=== PATIENT | female | born 1935 | race Caucasian/White ===

== ENCOUNTER 2021-11-06 00:22 | Inpatient (IN) | payer OTHER ==
[~2021-11-06] VITALS: Ht 149.9 cm; Wt 62.2 kg
[~2021-11-06 00:22] MED LIST: AMLO-489 PO; ASPI-543 PO; CHOL0.05 PO; CYA100I PO; CYCL-839 PO; DONE1TAB88 PO; ESOM40CA39 PO; FERR-20 PO; LEVO25TA6 PO; LOPE2CAP PO; LOSA-69 PO; LOVA40TA72 PO; METF-370 PO
[2021-11-06] MEDS ORDERED: SODIUM CHLORIDE 0.9% 500 ML IV ONE (01:15)
[2021-11-06] MEDS ORDERED: ONDANSETRON HCL 4 MG/2 ML VIAL IV ONE ×2 (01:15→04:15)
[2021-11-06] MEDS ORDERED: HYDROmorphone HCL 2 MG/ML VL/or syr IV ONE ×2 (01:15→04:15)
[2021-11-06 01:17] LABS: Basophils # (auto) 0.2 10 ^3/uL (0-0.2); Basophils % (auto) 0.9 % (0.0-2.0); Eosinophils # (auto) 0 10 ^3/uL (0-0.8); Eosinophils % (auto) 0.1 % (0.0-7.0); Hematocrit 45.7 % (36.0-46.0); Hemoglobin 14.8 g/dL (12.2-16.2); Lymphocytes # (auto) 4.4 10 ^3/uL (0.4-5.4); Mean Corpuscular Hemoglobin 28.1 pg (28.0-32.0); Mean Corpuscular Hgb Conc. 32.5 g/dL (32.0-36.0); Mean Corpuscular Volume 86.5 fL (80.0-100.0); Monocytes # (auto) 1.6 10 ^3/uL (0-1.3); Monocytes % (auto) 7.3 % (0.0-12.0); Neutrophils # (auto) 15.8 10 ^3/uL (1.6-8.6); Neutrophils % (auto) 71.7 % (37.0-80.0); Nucleated Red Blood Cells % 0.1 %; Red Blood Cells 5.28 10^6/uL (4.0-5.20); Red Cell Distribution Width 15.1 % (11.8-14.3); White Blood Cell 22.1 10^3/uL (4.4-10.8)
[2021-11-06] MEDS ORDERED: IOHEXOL 300 MG/ML 100ML BOTTLE IJ ONE (01:17)
[2021-11-06 01:34] LABS: Albumin 3.8 g/dL (3.4-5.0); Calcium 9.7 mg/dL (8.5-10.1); Potassium 3.1 mmol/L (3.5-5.1)
[2021-11-06 01:37] LABS: Bilirubin, Total 1.2 mg/dL (0.2-1.0); Lactic Acid w/Reflex 4.2 mmol/L (0.4-2.0); Total Protein 7.5 g/dL (6.4-8.2)
[2021-11-06 03:20] LABS: BUN/Creatinine Ratio 14.8
[2021-11-06 03:53] LABS: Urine Bacteria NONE SEEN /hpf (None Seen); Urine Blood Negative /uL (Negative); Urine WBC 1 /hpf (0 - 5)
[2021-11-06 04:08] LABS: Amphetamine Screen, Urine NEGATIVE (NEGATIVE); Barbiturate Scree,Urine NEGATIVE (NEGATIVE); Benzodiazephine Screen, Urine NEGATIVE (NEGATIVE); Cannabinoid Screen, Urine NEGATIVE (NEGATIVE); Cocaine Screen, Urine NEGATIVE (NEGATIVE); Opiate Scree,Urine NEGATIVE (NEGATIVE); Phencyclidine Screen, Urine NEGATIVE (NEGATIVE)
[2021-11-06 04:21] LABS: Alcohol, Urine < 3.0 mg/dL (0-10)
[2021-11-06] MEDS ORDERED: PIPERACILLIN-TAZOB 3.375GM 100 ML IV ONE (05:00)
[2021-11-06] MEDS ORDERED: VANCOMYCIN 1GM/250ML 250 ML IV ONE (05:00)
[2021-11-06] MEDS ORDERED: SODIUM CHLORIDE 0.9% 1,850 ML IV ONE (06:00)
[2021-11-06] MEDS ORDERED: HYDROcodone-ACET 5/325MG TAB PO PRN (07:15)
[2021-11-06] MEDS ORDERED: hydrALAZINE HCL 25 MG TAB PO PRN (07:15)
[2021-11-06] MEDS ORDERED: HYDROmorphone HCL 2 MG/ML VL/or syr IV PRN (07:15)
[2021-11-06] MEDS ORDERED: ONDANSETRON HCL 4 MG/2 ML VIAL IV PRN (07:15)
[2021-11-06] MEDS ORDERED: DOCUSATE SOD 100 MG CAP PO PRN (07:15)
[2021-11-06] MEDS ORDERED: DEXTROSE (50%) 50ML SYRG IV PRN (07:15)
[2021-11-06] MEDS ORDERED: ACETAMINOPHEN 325 MG TAB PO PRN (07:15)
[2021-11-06] MEDS ORDERED: MORPHINE SULFATE INJECTION 2 MG/ML SYRG IV PRN (07:30)
[2021-11-06] MEDS ORDERED: IPRATROPIUM BROM 0.5 MG/2.5ML INH SOL NEB PRN (07:30)
[2021-11-06] MEDS ORDERED: NITROGLYCERIN 0.4 MG SL TAB SL PRN (07:30)
[2021-11-06] MEDS ORDERED: ALBUTEROL SULF 2.5 MG/0.5ML(0.5%) NEB SOLN NEB PRN (07:30)
[2021-11-06 07:56] LABS: Basophils # (auto) 0 10 ^3/uL (0-0.2); Basophils % (auto) 0.3 % (0.0-2.0); Eosinophils # (auto) 0 10 ^3/uL (0-0.8); Hematocrit 44.9 % (36.0-46.0); Hemoglobin 15.2 g/dL (12.2-16.2); Lymphocytes # (auto) 0.6 10 ^3/uL (0.4-5.4); Lymphocytes % (auto) 5.2 % (10.0-50.0); Mean Corpuscular Hemoglobin 28.9 pg (28.0-32.0); Mean Corpuscular Hgb Conc. 33.8 g/dL (32.0-36.0); Mean Corpuscular Volume 85.3 fL (80.0-100.0); Monocytes # (auto) 0.6 10 ^3/uL (0-1.3); Monocytes % (auto) 5.1 % (0.0-12.0); Neutrophils # (auto) 10.1 10 ^3/uL (1.6-8.6); Neutrophils % (auto) 89.4 % (37.0-80.0); Red Blood Cells 5.26 10^6/uL (4.0-5.20); White Blood Cell 11.3 10^3/uL (4.4-10.8)
[2021-11-06] MEDS: ACCU-CHEK COMFORT CURVE STRIP VI SCH ×4 (08:22→20:10)
[2021-11-06] MEDS: InsuLIN REG 1unit/0.01ml Soln (100units/ml) SC SCH ×4 (08:22→20:00)
[2021-11-06 09:38] LABS: Albumin 3.4 g/dL (3.4-5.0); Calcium 8.6 mg/dL (8.5-10.1); Potassium 3.7 mmol/L (3.5-5.1)
[2021-11-06 09:42] LABS: BUN/Creatinine Ratio 18.6; Bilirubin, Total 0.6 mg/dL (0.2-1.0); Total Protein 6.6 g/dL (6.4-8.2)
[2021-11-06] MEDS: FAMOTIDINE (10MG/ML) 2ML VL IV SCH (09:52)
[2021-11-06] MEDS: amLODIPine BESYLATE 5 MG TAB PO SCH (09:52)
[2021-11-06] MEDS: ENOXAPARIN SOD 40 MG/0.4 ML SYRINGE SC SCH (09:53)
[2021-11-06] MEDS ORDERED: SODIUM CHLORIDE 0.9% 1,000 ML IV ONE (11:00)
[2021-11-06] MEDS: SODIUM CHLORIDE 0.9% 1,000 ML IV SCH ×2 (12:00→18:45)
[2021-11-06 13:00] VITALS: BP 127/59
[2021-11-06] MEDS: SODIUM CHLOR 0.9% PF (SALINE LOCK) 10ML VIAL/SYR IV SCH ×2 (14:00→22:20)
[2021-11-06 14:10] VITALS: BP 181/77
[2021-11-06] MEDS: PIPERACILLIN-TAZOB 3.375GM 100 ML IV SCH ×2 (14:30→22:57)
[2021-11-06 16:42] VITALS: BP 123/52
[2021-11-06 22:00] VITALS: BP 130/48
[2021-11-07] MEDS: ACCU-CHEK COMFORT CURVE STRIP VI SCH ×7 (00:01→23:56)
[2021-11-07] MEDS: InsuLIN REG 1unit/0.01ml Soln (100units/ml) SC SCH ×7 (00:05→23:57)
[2021-11-07] MEDS: INSULIN LANTUS (GLARGINE) 1 /0.01ml (100units/ml) SC SCH ×3 (00:06→23:52)
[2021-11-07] MEDS: SODIUM CHLORIDE 0.9% 1,000 ML IV SCH ×2 (02:23→11:15)
[2021-11-07 05:00] VITALS: BP 129/72
[2021-11-07 06:05] LABS: Potassium 3.4 mmol/L (3.5-5.1)
[2021-11-07 06:06] LABS: Basophils # (auto) 0 10 ^3/uL (0-0.2); Basophils % (auto) 0.1 % (0.0-2.0); Eosinophils # (auto) 0 10 ^3/uL (0-0.8); Eosinophils % (auto) 0.1 % (0.0-7.0); Hematocrit 48.3 % (36.0-46.0); Hemoglobin 16.2 g/dL (12.2-16.2); Lymphocytes # (auto) 1.1 10 ^3/uL (0.4-5.4); Lymphocytes % (auto) 8.6 % (10.0-50.0); Mean Corpuscular Hemoglobin 28.5 pg (28.0-32.0); Mean Corpuscular Hgb Conc. 33.6 g/dL (32.0-36.0); Monocytes # (auto) 0.9 10 ^3/uL (0-1.3); Monocytes % (auto) 6.8 % (0.0-12.0); Neutrophils # (auto) 10.8 10 ^3/uL (1.6-8.6); Neutrophils % (auto) 84.4 % (37.0-80.0); Nucleated Red Blood Cells % 0.1 %; Red Blood Cells 5.68 10^6/uL (4.0-5.20); Red Cell Distribution Width 15.6 % (11.8-14.3); White Blood Cell 12.8 10^3/uL (4.4-10.8)
[2021-11-07 06:17] LABS: Albumin 2.7 g/dL (3.4-5.0); BUN/Creatinine Ratio 24.5; Bilirubin, Total 0.8 mg/dL (0.2-1.0); Calcium 6.8 mg/dL (8.5-10.1); Total Protein 6.6 g/dL (6.4-8.2)
[2021-11-07] MEDS: PIPERACILLIN-TAZOB 3.375GM 100 ML IV SCH ×3 (06:21→22:06)
[2021-11-07] MEDS: SODIUM CHLOR 0.9% PF (SALINE LOCK) 10ML VIAL/SYR IV SCH ×3 (06:21→22:01)
[2021-11-07 09:00] VITALS: BP 130/64
[2021-11-07] MEDS: FAMOTIDINE (10MG/ML) 2ML VL IV SCH (09:32)
[2021-11-07] MEDS: ENOXAPARIN SOD 40 MG/0.4 ML SYRINGE SC SCH (09:33)
[2021-11-07] MEDS: amLODIPine BESYLATE 5 MG TAB PO SCH (09:33)
[2021-11-07] MEDS ORDERED: SODIUM CHLORIDE 0.9% 1,000 ML IV ONE (11:00)
[2021-11-07 13:00] VITALS: BP 136/65
[2021-11-07 17:00] VITALS: BP 136/51
[2021-11-07 20:00] VITALS: BP 122/68
[2021-11-07 21:41] VITALS: BP 122/68
[2021-11-08] MEDS: SODIUM CHLORIDE 0.9% 1,000 ML IV SCH (03:55)
[2021-11-08] MEDS: ACCU-CHEK COMFORT CURVE STRIP VI SCH ×3 (04:09→11:31)
[2021-11-08] MEDS: InsuLIN REG 1unit/0.01ml Soln (100units/ml) SC SCH ×3 (04:12→11:31)
[2021-11-08 04:50] VITALS: BP 149/71
[2021-11-08] MEDS: PIPERACILLIN-TAZOB 3.375GM 100 ML IV SCH (06:22)
[2021-11-08] MEDS: SODIUM CHLOR 0.9% PF (SALINE LOCK) 10ML VIAL/SYR IV SCH ×2 (06:22→14:12)
[2021-11-08] MEDS: INSULIN LANTUS (GLARGINE) 1 /0.01ml (100units/ml) SC SCH (06:29)
[2021-11-08 06:57] LABS: Basophils # (auto) 0 10 ^3/uL (0-0.2); Basophils % (auto) 0.1 % (0.0-2.0); Eosinophils # (auto) 0 10 ^3/uL (0-0.8); Hematocrit 42.4 % (36.0-46.0); Hemoglobin 14.7 g/dL (12.2-16.2); Lymphocytes # (auto) 0.8 10 ^3/uL (0.4-5.4); Mean Corpuscular Hemoglobin 29.3 pg (28.0-32.0); Mean Corpuscular Hgb Conc. 34.7 g/dL (32.0-36.0); Mean Corpuscular Volume 84.5 fL (80.0-100.0); Monocytes # (auto) 0.5 10 ^3/uL (0-1.3); Monocytes % (auto) 4.4 % (0.0-12.0); Neutrophils # (auto) 9.6 10 ^3/uL (1.6-8.6); Neutrophils % (auto) 88.5 % (37.0-80.0); Red Blood Cells 5.02 10^6/uL (4.0-5.20); Red Cell Distribution Width 15.5 % (11.8-14.3); White Blood Cell 10.8 10^3/uL (4.4-10.8)
[2021-11-08 07:22] LABS: Albumin 2.1 g/dL (3.4-5.0); Potassium 3.2 mmol/L (3.5-5.1)
[2021-11-08 07:37] LABS: BUN/Creatinine Ratio 25.7; Bilirubin, Direct 0.2 mg/dL (0-0.2); Total Protein 5.9 g/dL (6.4-8.2)
[2021-11-08 07:39] LABS: Calcium 5.3 mg/dL (8.5-10.1)
[2021-11-08 08:00] VITALS: BP 130/64
[2021-11-08 09:00] VITALS: BP 125/63
[2021-11-08] MEDS: FAMOTIDINE (10MG/ML) 2ML VL IV SCH (09:28)
[2021-11-08] MEDS: amLODIPine BESYLATE 5 MG TAB PO SCH (09:29)
[2021-11-08] MEDS: ENOXAPARIN SOD 40 MG/0.4 ML SYRINGE SC SCH (09:29)
[2021-11-08] MEDS ORDERED: POTASSIUM EFFERVESENT TAB 25 MEQ GT ONE (11:00)
[2021-11-08 12:55] VITALS: BP 125/63
[2021-11-08] MEDS ORDERED: LOPERAMIDE HCL 2 MG CAP/TAB PO ONE (14:15)
== END 2021-11-08 16:00 | disposition home health service (06) | DRG 440 ==
LOC: ER 00:22 → EDBD 00:22 → TELE 07:30 → TELE-EAST 19:28
PROVIDERS: ADMIT Nurse Practitioner Family; ATTEND Internal Medicine
DX: K85.10 Biliary acute pancreatitis without necrosis or infection (principal); E03.9 Hypothyroidism, unspecified; E11.65 Type 2 diabetes mellitus with hyperglycemia; E78.5 Hyperlipidemia, unspecified; I10 Essential (primary) hypertension; J44.9 Chronic obstructive pulmonary disease, unspecified; K21.9 Gastro-esophageal reflux disease without esophagitis; K44.9 Diaphragmatic hernia without obstruction or gangrene; R74.01 Elevation of levels of liver transaminase levels; R74.8 Abnormal levels of other serum enzymes; R79.89 Other specified abnormal findings of blood chemistry; K57.30 Diverticulosis of large intestine without perforation or abscess without bleeding; Z20.822 Contact with and (suspected) exposure to COVID-19; Z82.49 Family history of ischemic heart disease and other diseases of the circulatory system; Z83.3 Family history of diabetes mellitus; Z90.49 Acquired absence of other specified parts of digestive tract
CPT/HCPCS: 36415; 70450; 71260; 74177; 74181; 80048; 80053; 80076; 80307; 81001; 82962; 83036; 83605; 83690; 83880; 84443; 84478; 84484; 85025; 93005; 93306; 94640; 96361; 96365; 96366; 96367; 96375; 96376; 97163; 99291; G0378; J1815; J2405; J2543; J3490

== ENCOUNTER 2021-12-16 15:19 | Inpatient (IN) | payer OTHER ==
[~2021-12-16] VITALS: Ht 144.8 cm; Wt 60.6 kg
[2021-12-16 16:07] LABS: Basophils # (auto) 0 10 ^3/uL (0-0.2); Basophils % (auto) 0.1 % (0.0-2.0); Eosinophils # (auto) 0 10 ^3/uL (0-0.8); Hemoglobin 7.5 g/dL (12.2-16.2); Lymphocytes # (auto) 1.4 10 ^3/uL (0.4-5.4); Monocytes # (auto) 0.6 10 ^3/uL (0-1.3); Neutrophils # (auto) 9.6 10 ^3/uL (1.6-8.6); White Blood Cell 11.6 10^3/uL (4.4-10.8)
[2021-12-16 16:11] LABS: Hematocrit 23.2 % (36.0-46.0); Lymphocytes % (auto) 12.2 % (10.0-50.0); Mean Corpuscular Hemoglobin 26.6 pg (28.0-32.0); Mean Corpuscular Hgb Conc. 32.3 g/dL (32.0-36.0); Mean Corpuscular Volume 82.2 fL (80.0-100.0); Monocytes % (auto) 5.2 % (0.0-12.0); Neutrophils % (auto) 82.5 % (37.0-80.0); Red Blood Cells 2.82 10^6/uL (4.0-5.20)
[2021-12-16 16:25] LABS: Albumin 1.5 g/dL (3.4-5.0); Calcium 7.5 mg/dL (8.5-10.1); Magnesium 2.5 mg/dL (1.6-2.6); Potassium 4.4 mmol/L (3.5-5.1)
[2021-12-16 16:28] LABS: BUN/Creatinine Ratio 43.9; Bilirubin, Total 0.4 mg/dL (0.2-1.0); Total Protein 5.1 g/dL (6.4-8.2)
[2021-12-16] MEDS ORDERED: SODIUM CHLORIDE 0.9% 1,000 ML IV ONE (18:00)
[2021-12-16] MEDS ORDERED: SODIUM CHLORIDE 0.9% 500 ML IVB ONE (18:00)
[2021-12-16 19:05] LABS: Magnesium 2.4 mg/dL (1.6-2.6)
[2021-12-16 19:18] LABS: Partial Thromboplastin Time 41.7 sec (23.6-33.0)
[2021-12-16 19:33] LABS: INR 4.03 (0.9-1.15)
[2021-12-16] MEDS ORDERED: PHYTONADIONE (VIT K)10 MG/ML 1ML VIAL SUBCUT ONE (20:00)
[2021-12-16] MEDS: SODIUM CHLORIDE 0.9% 1,000 ML IV SCH (21:45)
[2021-12-16] MEDS ORDERED: ONDANSETRON HCL 4 MG/2 ML VIAL IV PRN (21:45)
[2021-12-16] MEDS ORDERED: MORPHINE SULFATE INJ 2 MG/ml SYRG IV PRN (21:45)
[2021-12-16] MEDS ORDERED: NITROGLYCERIN 0.4 MG SL TAB SL PRN (21:45)
[2021-12-16] MEDS ORDERED: DEXTROSE (50%) 50ML SYRG IV PRN (21:45)
[2021-12-16] MEDS: PANTOPRAZOLE 40 MG/10 ML VIAL INJ IV SCH (22:26)
[2021-12-16 22:29] LABS: Hematocrit 21.8 % (36.0-46.0)
[2021-12-16 22:33] LABS: Urine Bacteria NONE SEEN /hpf (None Seen); Urine Blood Negative /uL (Negative); Urine Hyaline Cast FEW /lpf (0 - 2); Urine Mucus FEW (None Seen); Urine Specific Gravity 1.016 (1.001-1.035); Urine WBC 3 /hpf (0 - 5)
[2021-12-17] VITALS (12 sets, daily range): BP systolic 51–129; BP diastolic 34–80
[2021-12-17] MEDS: ACCU-CHEK COMFORT CURVE STRIP VI SCH ×4 (01:04→17:46)
[2021-12-17] MEDS: InsuLIN REG 1unit/0.01ml Soln (100units/ml) SC SCH ×4 (01:04→17:46)
[2021-12-17 02:46] LABS: Hematocrit 19.4 % (36.0-46.0)
[2021-12-17 03:05] LABS: Hemoglobin 6.4 g/dL (12.2-16.2)
[2021-12-17] MEDS: SODIUM CHLORIDE 0.9% 1,000 ML IV SCH ×2 (10:28→21:59)
[2021-12-17] MEDS: PANTOPRAZOLE 40 MG/10 ML VIAL INJ IV SCH ×2 (10:28→21:59)
[2021-12-17 11:21] LABS: Basophils # (auto) 0 10 ^3/uL (0-0.2); Eosinophils # (auto) 0 10 ^3/uL (0-0.8); Lymphocytes # (auto) 1.7 10 ^3/uL (0.4-5.4); Monocytes # (auto) 0.6 10 ^3/uL (0-1.3)
[2021-12-17 11:22] LABS: Basophils % (auto) 0.1 % (0.0-2.0); Eosinophils % (auto) 0.2 % (0.0-7.0); Hematocrit 33.6 % (36.0-46.0); Mean Corpuscular Hemoglobin 27.7 pg (28.0-32.0); Mean Corpuscular Hgb Conc. 32.7 g/dL (32.0-36.0); Mean Corpuscular Volume 84.5 fL (80.0-100.0); Monocytes % (auto) 4.5 % (0.0-12.0); Neutrophils # (auto) 11.6 10 ^3/uL (1.6-8.6); Neutrophils % (auto) 83.2 % (37.0-80.0); Nucleated Red Blood Cells % 0.1 %; Red Blood Cells 3.97 10^6/uL (4.0-5.20); Red Cell Distribution Width 14.9 % (11.8-14.3); White Blood Cell 13.9 10^3/uL (4.4-10.8)
[2021-12-17 11:34] LABS: Albumin 1.5 g/dL (3.4-5.0); BUN/Creatinine Ratio 48.5; Calcium 6.9 mg/dL (8.5-10.1); Potassium 4.5 mmol/L (3.5-5.1)
[2021-12-17 11:36] LABS: Total Protein 4.8 g/dL (6.4-8.2)
[2021-12-17 11:47] LABS: INR 1.14 (0.9-1.15)
[2021-12-18] MEDS: ACCU-CHEK COMFORT CURVE STRIP VI SCH ×4 (00:33→18:40)
[2021-12-18] MEDS: InsuLIN REG 1unit/0.01ml Soln (100units/ml) SC SCH ×4 (00:35→18:40)
[2021-12-18 05:00] VITALS: BP 127/41
[2021-12-18 08:00] VITALS: BP 113/43
[2021-12-18] MEDS: SODIUM CHLORIDE 0.9% 1,000 ML IV SCH (09:40)
[2021-12-18] MEDS: PANTOPRAZOLE 40 MG/10 ML VIAL INJ IV SCH (09:40)
[2021-12-18 12:00] VITALS: BP 115/53
[2021-12-18 12:25] LABS: Basophils # (auto) 0 10 ^3/uL (0-0.2); Basophils % (auto) 0.1 % (0.0-2.0); Eosinophils # (auto) 0.1 10 ^3/uL (0-0.8); Eosinophils % (auto) 0.5 % (0.0-7.0); Hematocrit 31.4 % (36.0-46.0); Lymphocytes # (auto) 0.7 10 ^3/uL (0.4-5.4); Lymphocytes % (auto) 5.8 % (10.0-50.0); Mean Corpuscular Hemoglobin 29.6 pg (28.0-32.0); Mean Corpuscular Volume 92.4 fL (80.0-100.0); Monocytes # (auto) 0.4 10 ^3/uL (0-1.3); Monocytes % (auto) 3.5 % (0.0-12.0); Neutrophils # (auto) 10.9 10 ^3/uL (1.6-8.6); Neutrophils % (auto) 90.1 % (37.0-80.0); Nucleated Red Blood Cells % 0.1 %; Red Blood Cells 3.39 10^6/uL (4.0-5.20); Red Cell Distribution Width 15.6 % (11.8-14.3); White Blood Cell 12.1 10^3/uL (4.4-10.8)
[2021-12-18 16:00] VITALS: BP 122/47
[2021-12-18 17:36] VITALS: BP 122/47
== END 2021-12-18 19:11 | disposition hospice, home (50) | DRG 377 ==
LOC: EDBD 15:19 → ER 15:19 → EDSEX 15:19 → TELE 21:31 → TELE-EAST 12-17 14:45
PROVIDERS: ADMIT Nurse Practitioner; ATTEND Internal Medicine
PROC: 30233N1 Transfusion of Nonautologous Red Blood Cells into Peripheral Vein, Percutaneous Approach (ICD-10-PCS; principal; 2021-12-17)
PROC: 30233N1 Transfusion of Nonautologous Red Blood Cells into Peripheral Vein, Percutaneous Approach (ICD-10-PCS; 2021-12-17)
DX: K62.5 Hemorrhage of anus and rectum (principal); E43 Unspecified severe protein-calorie malnutrition; K85.90 Acute pancreatitis without necrosis or infection, unspecified; N17.9 Acute kidney failure, unspecified; R18.8 Other ascites; E11.9 Type 2 diabetes mellitus without complications; I10 Essential (primary) hypertension; J44.9 Chronic obstructive pulmonary disease, unspecified; Z20.822 Contact with and (suspected) exposure to COVID-19; D64.9 Anemia, unspecified; K21.9 Gastro-esophageal reflux disease without esophagitis; Z83.3 Family history of diabetes mellitus; Z90.49 Acquired absence of other specified parts of digestive tract; Z68.25 Body mass index [BMI] 25.0-25.9, adult
CPT/HCPCS: 36415; 71045; 74176; 80053; 81001; 82962; 83690; 83735; 85014; 85018; 85025; 85610; 85730; 86850; 86900; 86901; 86920; 93005; 96361; 96372; 96374; C9113; G0378; J1815; J2405; J3430